=== PATIENT | female | born 1995 | race Two or more races ===

== ENCOUNTER 2017-01-08 04:09 | Emergency (ER) | payer MEDICAID ==
[~2017-01-08] VITALS: Ht 172.7 cm; Wt 104.3 kg
[2017-01-08 04:21] VITALS: BP 132/85
== END 2017-01-08 05:00 | disposition left against medical advice (07) ==
LOC: ER 04:10
DX: M79.604 Pain in right leg (principal); M79.605 Pain in left leg; Z53.21 Procedure and treatment not carried out due to patient leaving prior to being seen by health care provider

== ENCOUNTER 2025-04-02 11:11 | Emergency (ER) | payer MEDICAID, OTHER ==
[~2025-04-02] VITALS: Ht 170.2 cm; Wt 85.7 kg
[2025-04-02 11:12] VITALS: TEMP 97.8
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
--- NOTE | 2025-04-02 12:25 | DVH ---
XY PELVIS AP HISTORY: fall TECHNICAL DATA: Frontal view was obtained of the pelvis. COMPARISON: XY CERVICAL SPINE 3V on DOS: 04/02/25 FINDINGS: There is no abnormality involving the bony pelvis. The sacroiliac joints appear normal. There is no a bnormality of the symphysis pubis. The hip joint spaces are symmetric. The proximal femurs demonstrat e no abnormality. An IUD is noted. IMPRESSION: No acute fracture or dislocation of the pelvis.
--- NOTE | 2025-04-02 12:27 | DVH ---
INDICATION: pain;fall COMPARISON: XY PELVIS AP on DOS: 04/02/25 TECHNIQUE: 3 views of the cervical spine were obtained. FINDINGS: Straightening of the cervical spine. The predental space is normal. The intervertebral disc spaces are well-maintained. No significant facet arthropathy is noted. No acute fracture, vertebral compression deformity or aggressive osseous lesions. The imaged lung apices are unremarkable. IMPRESSION: No acute fracture.
--- NOTE | 2025-04-02 12:43 | DVH ---
EXAM: CT HEAD WITHOUT CONTRAST INDICATION: fall, headache TECHNIQUE: CT of the head without intravenous contrast. Radiation Dose : 1. Head: CT Dose: CTDI volume is 60.5 mGy. Dose-length product is 1192.14 mGy*cm The dose indicators for CT are the volume Computed Tomography (CT) Dose Index (CTDIvol) and the Dose Length Product (DLP), and are measured in units of mGy and mGy-cm, respectively. These indicators are not patient dose, but values generated from the CT scanner acquisition factors. The report includes radiation exposure data for exposures received during this examination. COMPARISON: None FINDINGS: There is no evidence of acute intracranial hemorrhage, extra-axial collection, mass effect, midline s hift, herniation or hydrocephalus. The ventricles, sulci and cisterns are age appropriate. The villarreal-white differentiation is intact. The visualized paranasal sinuses and mastoid air cells are clear. The surrounding soft tissues and osseous structures are unremarkable. IMPRESSION: No acute intracranial abnormality. Radiation optimization: All CT scans at this facility use at least one of these dose optimization lazaro hniques: automated exposure control mA and/or kV adjustment per patient size (includes targeted exam s where dose is matched to clinical indication) or iterative reconstruction.
[2025-04-02 12:57] VITALS: BP 124/75; PULSE 70; RESP 18; O2SAT 98
== END 2025-04-02 13:24 | disposition home or self-care (01) ==
LOC: ER 11:11
DX: S09.8XXA Other specified injuries of head, initial encounter (principal); W01.0XXA Fall on same level from slipping, tripping and stumbling without subsequent striking against object, initial encounter; Y93.89 Activity, other specified; Y92.89 Other specified places as the place of occurrence of the external cause; Y99.8 Other external cause status
CPT/HCPCS: 70450; 72040; 72170